=== PATIENT | male | born 2000 | race Caucasian/White ===

== ENCOUNTER 2019-04-14 23:19 | Inpatient (IN) | payer BC ==
[~2019-04-14] VITALS: Ht 182.9 cm; Wt 78.9 kg
[2019-04-14] MEDS ORDERED: PROPOFOL 100 ML IV ONE (23:27)
[2019-04-14] MEDS ORDERED: SODIUM CHLORIDE 0.9% 1,000ML IVBOLUS ONE (23:30)
[2019-04-14] MEDS: PROPOFOL 100 ML IV PRN (23:51)
[2019-04-14 23:56] LABS: MICROSCOPIC NOT IND
--- NOTE | 2019-04-14 23:57 | NUR ---
[facility]IVA REM[facility] FROM A [facility] FOR ETOH. EMS REPORT THE PT WAS CYANOTIC AND VOMITING UPON THEIR ARRIVAL. RA SAT 64%. EMS INTUBATED WITH A 8.0 TUBE, 27 AT THE TEETH. NO MEDS WERE GIVEN PER PARAMEDICS. PUPILS DILATED AND EQUAL BILATERALLY. LUNG SOUNDS REVEAL COARSE RHONCHI THROUGH OUT ALL ALCANTAR. BYSTANDERS DENY ANY DRUG USE, JUST REPORT HEAVY ETOH USE "ALL DAY". NO MEDS, ALLERGIES OR PMHX.
[2019-04-14 23:58] LABS: CULTURE INDICATED? NO
[2019-04-14 23:59] LABS: BASOPHILS # (AUTO) 0.05 x10^3/uL (0-0.1); BASOPHILS % (AUTO) 1 % (0-1); EOSINOPHILS # (AUTO) 0.18 x10^3/uL (0-0.4); EOSINOPHILS % (AUTO) 2 % (1-7); LYMPHOCYTES # (AUTO) 3.33 x10^3/uL (1-3.4); LYMPHOCYTES % (AUTO) 33 % (22-44); MD NO; MEAN CORPUSCULAR HGB CONC 33.7 g/dL (33.2-36.2); MEAN CORPUSCULAR VOLUME 91.9 fL (81-97); MEAN PLATELET VOLUME 7.4 fL (7.4-10.4); MONOCYTES # (AUTO) 0.48 x10^3/uL (0.2-0.8); MONOCYTES % (AUTO) 5 % (2-9); NEUTROPHILS # (AUTO) 6.21 x10^3/uL (1.8-6.8); NEUTROPHILS % (AUTO) 61 % (42-75); PLATELET COUNT 371 x10^3/uL (130-400); RED BLOOD COUNT 5.21 x10^6/uL (4.38-5.82); RED CELL DISTRIBUTION WIDTH 13.2 % (9.4-14.8)
[2019-04-15 00:02] LABS: ALANINE AMINOTRANSFERASE 37 U/L (12-78); ALBUMIN 4.3 g/dL (3.4-5.0); ANION GAP 11 mmol/L (5-15); CHLORIDE 107 mmol/L (98-107); CREATININE 1.01 mg/dL (0.7-1.3)
[2019-04-15 00:03] LABS: SALICYLATE LEVEL < 1.7 mg/dL (2.8-20.0)
[2019-04-15 00:07] LABS: ALKALINE PHOSPHATASE 72 U/L (45-117); BILIRUBIN,TOTAL 0.3 mg/dL (0.2-1.0); TOTAL PROTEIN 7.8 g/dL (6.4-8.2)
[2019-04-15 00:13] LABS: AMPHETAMINE SCREEN, URINE Negative (Negative); BARBITURATE SCREEN, URINE Negative (Negative); BENZODIAZEPINE SCREEN, URINE Negative (Negative); CANNABINOID SCREEN, URINE Negative (Negative); COCAINE SCREEN, URINE Negative (Negative); METHADONE SCREEN, URINE Negative (Negative); OPIATE SCREEN, URINE Negative (Negative)
[2019-04-15] MEDS ORDERED: AMPICILLIN/SULBACTAM 3 GM in SODIUM CHLORIDE 0.9% 100 ML IV ONE (01:00)
[2019-04-15] MEDS ORDERED: PROPOFOL 100 ML IV PRN ×2 (01:08→02:02)
--- NOTE | 2019-04-15 01:21 | NUR ---
PT IN NADCONTINUES ON VENT TV 411 RR 20 FIO2 100% PEEP 5
--- NOTE | 2019-04-15 01:23 | NUR ---
AWAITING ICU BED
[2019-04-15] MEDS ORDERED: SENNA/DOCUSATE TABLET NG PRN ×2 (01:30→02:30)
[2019-04-15] MEDS ORDERED: GLUCAGON 1 MG IM PRN ×2 (01:30→02:30)
[2019-04-15] MEDS ORDERED: DEXTROSE 4 GM TAB.CHEW PO PRN ×2 (01:30→02:30)
[2019-04-15] MEDS ORDERED: DEXTROSE 50%, 50ML SYRINGE IVPush PRN ×2 (01:30→02:30)
[2019-04-15] MEDS ORDERED: LIDOCAINE-MPF 1%, 2ML ENDO PRN ×2 (01:30→02:30)
[2019-04-15] MEDS ORDERED: LACTULOSE 20 GM/30 ML UDC NG PRN ×2 (01:30→02:30)
[2019-04-15] MEDS ORDERED: SENNA 176 MG/5 ML ORAL SOL NG PRN ×2 (01:30→02:30)
[2019-04-15] MEDS ORDERED: BISACODYL 10 MG SUPP PR PRN ×2 (01:30→02:30)
[2019-04-15] MEDS ORDERED: PHARMACY MAY ADJ FOR RENAL FX MC SCH ×2 (01:30→02:30)
[2019-04-15] MEDS ORDERED: NOREPINEPHRINE 4 MG in SODIUM CHLORIDE 0.9% 246 ML IV PRN (02:02)
--- NOTE | 2019-04-15 02:09 | NUR ---
report to [facility] pt to icu with this rn and tech and rt
[2019-04-15] MEDS ORDERED: PIPERACILLIN/TAZO/PMX 3.375GM 50 ML IV SCH (02:30)
[2019-04-15] MEDS ORDERED: [UNRECOGNIZED DRUG - REMARK] MC SCH (03:00)
[2019-04-15 04:00] VITALS: BP 110/67
[2019-04-15] MEDS ORDERED: SODIUM CHLORIDE 0.9% 1,000ML IVBOLUS ONE ×2 (04:00→13:00)
[2019-04-15] MEDS: ALBUTEROL SULFATE 2.5 MG/3 ML INLINE SCH ×6 (04:30→22:30)
[2019-04-15] MEDS: PROPOFOL 100 ML IV PRN ×4 (04:36→23:13)
[2019-04-15] MEDS: INSULIN LISPRO 100 UNITS/ML, PEN SQ-INSULIN SCH ×4 (07:00→21:00)
[2019-04-15] MEDS ORDERED: AMPICILLIN/SULBACTAM 3 GM in SODIUM CHLORIDE 0.9% 100 ML IV SCH (07:00)
[2019-04-15] MEDS ORDERED: SODIUM CHLORIDE FLUSH 10ML SYR IVF SCH (09:00)
[2019-04-15] MEDS: SODIUM CHLORIDE FLUSH 10ML SYR IVF SCH ×2 (09:02→21:32)
[2019-04-15] MEDS: AMPICILLIN/SULBACTAM 3 GM in SODIUM CHLORIDE 0.9% 100 ML IV SCH ×3 (09:02→21:28)
[2019-04-15] MEDS: FENTANYL PF 100 MCG/2ML IVPush PRN ×2 (09:04→10:36)
[2019-04-15] MEDS ORDERED: MIDAZOLAM 1 MG/ML, 2ML IVPush PRN (11:00)
[2019-04-15] MEDS ORDERED: FENTANYL PF 2,500 MCG in SODIUM CHLORIDE 0.9% 200 ML IV PRN (11:00)
[2019-04-15] MEDS ORDERED: PHENYLEPHRINE NASAL 0.25%, 15ML SPRAY NAS PRN (12:30)
[2019-04-15] MEDS ORDERED: VASOPRESSIN 50 UNIT in SODIUM CHLORIDE 0.9% 247.5 ML IV PRN (13:00)
[2019-04-15] MEDS ORDERED: ACETAMINOPHEN 325 MG TABLET ONE (13:07)
[2019-04-15] MEDS: ACETAMINOPHEN 325 MG TABLET PO PRN ×2 (13:15→21:37)
[2019-04-15] MEDS ORDERED: THIAMINE 200 MG in SODIUM CHLORIDE 0.9% 50 ML IV ONE (13:30)
[2019-04-15 16:13] LABS: ALANINE AMINOTRANSFERASE 25 U/L (12-78); ALBUMIN 3.1 g/dL (3.4-5.0); ANION GAP 10 mmol/L (5-15); CALCIUM 7.2 mg/dL (8.5-10.1); CHLORIDE 114 mmol/L (98-107); CREATININE 0.97 mg/dL (0.7-1.3)
[2019-04-15 16:16] LABS: ALKALINE PHOSPHATASE 47 U/L (45-117); BILIRUBIN,TOTAL 0.4 mg/dL (0.2-1.0); TOTAL PROTEIN 5.6 g/dL (6.4-8.2)
[2019-04-15 16:44] LABS: BASOPHILS # (AUTO) 0.02 x10^3/uL (0-0.1); BASOPHILS % (AUTO) 0 % (0-1); EOSINOPHILS % (AUTO) 0 % (1-7); LYMPHOCYTES % (AUTO) 5 % (22-44); MD SCAN; MEAN CORPUSCULAR HEMOGLOBIN 31.1 pg (27.5-34.5); MEAN CORPUSCULAR HGB CONC 33.7 g/dL (33.2-36.2); MEAN CORPUSCULAR VOLUME 92.2 fL (81-97); MEAN PLATELET VOLUME 7.5 fL (7.4-10.4); MONOCYTES # (AUTO) 0.81 x10^3/uL (0.2-0.8); MONOCYTES % (AUTO) 5 % (2-9); NEUTROPHILS # (AUTO) 15.55 x10^3/uL (1.8-6.8); NEUTROPHILS % (AUTO) 90 % (42-75); PLATELET COUNT 266 x10^3/uL (130-400); RED BLOOD COUNT 4.03 x10^6/uL (4.38-5.82); RED CELL DISTRIBUTION WIDTH 13.1 % (9.4-14.8)
[2019-04-15] MEDS ORDERED: KETOROLAC 30 MG/1 ML IVPush SCH (23:00)
[2019-04-16] MEDS: ALBUTEROL SULFATE 2.5 MG/3 ML INLINE SCH ×2 (02:35→06:30)
[2019-04-16] MEDS: PROPOFOL 100 ML IV PRN (03:52)
[2019-04-16] MEDS: AMPICILLIN/SULBACTAM 3 GM in SODIUM CHLORIDE 0.9% 100 ML IV SCH ×4 (03:55→23:03)
[2019-04-16 04:00] VITALS: BP 115/86
[2019-04-16 05:32] LABS: BASOPHILS # (AUTO) 0.01 x10^3/uL (0-0.1); BASOPHILS % (AUTO) 0 % (0-1); EOSINOPHILS # (AUTO) 0.06 x10^3/uL (0-0.4); EOSINOPHILS % (AUTO) 1 % (1-7); LYMPHOCYTES # (AUTO) 0.63 x10^3/uL (1-3.4); LYMPHOCYTES % (AUTO) 6 % (22-44); MD NO; MEAN CORPUSCULAR HEMOGLOBIN 31.3 pg (27.5-34.5); MEAN CORPUSCULAR HGB CONC 34.1 g/dL (33.2-36.2); MEAN CORPUSCULAR VOLUME 91.8 fL (81-97); MEAN PLATELET VOLUME 7.2 fL (7.4-10.4); MONOCYTES # (AUTO) 0.46 x10^3/uL (0.2-0.8); MONOCYTES % (AUTO) 4 % (2-9); NEUTROPHILS # (AUTO) 9.85 x10^3/uL (1.8-6.8); NEUTROPHILS % (AUTO) 90 % (42-75); PLATELET COUNT 178 x10^3/uL (130-400); RED BLOOD COUNT 3.63 x10^6/uL (4.38-5.82); RED CELL DISTRIBUTION WIDTH 13.3 % (9.4-14.8)
[2019-04-16 05:37] LABS: CHLORIDE 109 mmol/L (98-107)
[2019-04-16 05:42] LABS: ANION GAP 6 mmol/L (5-15); CALCIUM 7.9 mg/dL (8.5-10.1); CREATININE 0.93 mg/dL (0.7-1.3); TRIGLYCERIDES 399 mg/dL (50-200)
[2019-04-16] MEDS ORDERED: POTASSIUM CHLORIDE 10% 20 MEQ/15 ML UDC PO ONE (06:30)
[2019-04-16] MEDS ORDERED: MAGNESIUM SULFATE PMX 2GM/50ML 50 ML IV ONE (06:30)
[2019-04-16] MEDS: INSULIN LISPRO 100 UNITS/ML, PEN SQ-INSULIN SCH (07:00)
[2019-04-16] MEDS ORDERED: KETOROLAC 30 MG/1 ML IVPush ONE (08:00)
[2019-04-16] MEDS ORDERED: SODIUM CHLORIDE 0.9% 1,000ML IVBOLUS ONE (08:00)
[2019-04-16] MEDS: SODIUM CHLORIDE FLUSH 10ML SYR IVF SCH ×2 (09:57→21:00)
[2019-04-16] MEDS: MULTIVITAMIN 1 TABLET PO SCH (14:06)
[2019-04-16] MEDS: THIAMINE 100MG TABLET PO SCH (14:06)
[2019-04-16] MEDS: ACETAMINOPHEN 325 MG TABLET PO PRN ×2 (14:06→21:05)
[2019-04-17] MEDS: ACETAMINOPHEN 325 MG TABLET PO PRN ×2 (03:13→15:25)
[2019-04-17] MEDS: AMPICILLIN/SULBACTAM 3 GM in SODIUM CHLORIDE 0.9% 100 ML IV SCH ×4 (04:34→23:16)
[2019-04-17 04:38] LABS: BASOPHILS # (AUTO) 0.02 x10^3/uL (0-0.1); BASOPHILS % (AUTO) 0 % (0-1); EOSINOPHILS # (AUTO) 0.47 x10^3/uL (0-0.4); EOSINOPHILS % (AUTO) 4 % (1-7); LYMPHOCYTES # (AUTO) 0.61 x10^3/uL (1-3.4); LYMPHOCYTES % (AUTO) 5 % (22-44); MD NO; MEAN CORPUSCULAR HGB CONC 33.9 g/dL (33.2-36.2); MEAN CORPUSCULAR VOLUME 91.5 fL (81-97); MEAN PLATELET VOLUME 7.4 fL (7.4-10.4); MONOCYTES # (AUTO) 0.43 x10^3/uL (0.2-0.8); MONOCYTES % (AUTO) 4 % (2-9); NEUTROPHILS # (AUTO) 9.94 x10^3/uL (1.8-6.8); NEUTROPHILS % (AUTO) 87 % (42-75); PLATELET COUNT 192 x10^3/uL (130-400); RED BLOOD COUNT 4.04 x10^6/uL (4.38-5.82); RED CELL DISTRIBUTION WIDTH 13.3 % (9.4-14.8)
[2019-04-17 04:47] VITALS: BP 112/44
[2019-04-17 04:51] LABS: ANION GAP 5 mmol/L (5-15); CALCIUM 8.2 mg/dL (8.5-10.1); CHLORIDE 111 mmol/L (98-107)
[2019-04-17 04:53] LABS: CREATININE 0.87 mg/dL (0.7-1.3)
[2019-04-17] MEDS ORDERED: IBUPROFEN 600 MG TABLET ONE (07:47)
[2019-04-17] MEDS: SODIUM CHLORIDE FLUSH 10ML SYR IVF SCH ×2 (07:51→23:16)
[2019-04-17] MEDS: THIAMINE 100MG TABLET PO SCH (07:51)
[2019-04-17] MEDS: MULTIVITAMIN 1 TABLET PO SCH (07:51)
[2019-04-17] MEDS: IBUPROFEN 600 MG TABLET PO PRN (07:54)
[2019-04-17] MEDS ORDERED: IBUPROFEN 200 MG TABLET PO PRN (08:00)
[2019-04-17 10:20] VITALS: BP 132/80
[2019-04-17 13:54] VITALS: BP 143/83
[2019-04-17 19:08] VITALS: BP 148/88
[2019-04-17] MEDS: BENZONATATE 100 MG CAPSULE PO PRN (19:50)
[2019-04-17] MEDS ORDERED: BENZONATATE 100 MG CAPSULE PO SCH (21:00)
[2019-04-17] MEDS: DIPHENHYDRAMINE 50 MG CAPSULE PO PRN (23:11)
[2019-04-18 01:40] VITALS: BP 123/71
[2019-04-18] MEDS: BENZONATATE 100 MG CAPSULE PO PRN ×2 (04:14→21:33)
[2019-04-18] MEDS: AMPICILLIN/SULBACTAM 3 GM in SODIUM CHLORIDE 0.9% 100 ML IV SCH ×2 (04:55→11:14)
[2019-04-18 05:31] LABS: BASOPHILS # (AUTO) 0.02 x10^3/uL (0-0.1); BASOPHILS % (AUTO) 0 % (0-1); EOSINOPHILS % (AUTO) 8 % (1-7); LYMPHOCYTES # (AUTO) 0.94 x10^3/uL (1-3.4); LYMPHOCYTES % (AUTO) 12 % (22-44); MD NO; MEAN CORPUSCULAR HEMOGLOBIN 30.5 pg (27.5-34.5); MEAN CORPUSCULAR HGB CONC 33.2 g/dL (33.2-36.2); MEAN CORPUSCULAR VOLUME 91.9 fL (81-97); MEAN PLATELET VOLUME 7.6 fL (7.4-10.4); MONOCYTES # (AUTO) 0.51 x10^3/uL (0.2-0.8); MONOCYTES % (AUTO) 6 % (2-9); NEUTROPHILS # (AUTO) 5.92 x10^3/uL (1.8-6.8); NEUTROPHILS % (AUTO) 74 % (42-75); PLATELET COUNT 263 x10^3/uL (130-400); RED BLOOD COUNT 4.53 x10^6/uL (4.38-5.82); RED CELL DISTRIBUTION WIDTH 13.1 % (9.4-14.8)
[2019-04-18 05:41] LABS: ANION GAP 7 mmol/L (5-15); CALCIUM 8.9 mg/dL (8.5-10.1); CHLORIDE 109 mmol/L (98-107)
[2019-04-18 05:42] LABS: TRIGLYCERIDES 272 mg/dL (50-200)
[2019-04-18] MEDS ORDERED: POTASSIUM CHLORIDE 20 MEQ TAB.ER.PRT PO ONE (06:30)
[2019-04-18] MEDS ORDERED: FUROSEMIDE 20 MG/2 ML IV ONE (06:30)
[2019-04-18 07:45] VITALS: BP 128/79
[2019-04-18] MEDS: IBUPROFEN 600 MG TABLET PO PRN (07:48)
[2019-04-18] MEDS: SODIUM CHLORIDE FLUSH 10ML SYR IVF SCH (09:00)
[2019-04-18] MEDS: THIAMINE 100MG TABLET PO SCH (09:17)
[2019-04-18] MEDS: MULTIVITAMIN 1 TABLET PO SCH (09:17)
[2019-04-18 14:30] VITALS: BP 146/82
[2019-04-18] MEDS: AMOXICILLIN/CLAV 875-125MG TABLET PO SCH ×2 (16:39→21:19)
[2019-04-18 19:33] VITALS: BP 145/90
[2019-04-18] MEDS: DIPHENHYDRAMINE 50 MG CAPSULE PO PRN (23:07)
[2019-04-19] MEDS: SODIUM CHLORIDE FLUSH 10ML SYR IVF SCH ×2 (00:30→09:00)
[2019-04-19 01:57] VITALS: BP 107/67
[2019-04-19] MEDS: IBUPROFEN 600 MG TABLET PO PRN (05:26)
[2019-04-19 06:00] LABS: BASOPHILS # (AUTO) 0.03 x10^3/uL (0-0.1); BASOPHILS % (AUTO) 0 % (0-1); EOSINOPHILS # (AUTO) 0.62 x10^3/uL (0-0.4); EOSINOPHILS % (AUTO) 6 % (1-7); LYMPHOCYTES # (AUTO) 1.06 x10^3/uL (1-3.4); LYMPHOCYTES % (AUTO) 11 % (22-44); MD NO; MEAN CORPUSCULAR HEMOGLOBIN 30.5 pg (27.5-34.5); MEAN CORPUSCULAR HGB CONC 33.6 g/dL (33.2-36.2); MEAN CORPUSCULAR VOLUME 90.8 fL (81-97); MEAN PLATELET VOLUME 6.9 fL (7.4-10.4); MONOCYTES # (AUTO) 0.75 x10^3/uL (0.2-0.8); MONOCYTES % (AUTO) 8 % (2-9); NEUTROPHILS # (AUTO) 7.56 x10^3/uL (1.8-6.8); NEUTROPHILS % (AUTO) 75 % (42-75); PLATELET COUNT 298 x10^3/uL (130-400)
[2019-04-19 06:05] LABS: ANION GAP 7 mmol/L (5-15); CHLORIDE 106 mmol/L (98-107)
[2019-04-19 06:09] LABS: CALCIUM 9.2 mg/dL (8.5-10.1); CREATININE 1.08 mg/dL (0.7-1.3); TRIGLYCERIDES 218 mg/dL (50-200)
[2019-04-19 07:42] VITALS: BP 98/65
[2019-04-19] MEDS ORDERED: POTASSIUM CHLORIDE 20 MEQ TAB.ER.PRT PO ONE (08:00)
[2019-04-19] MEDS ORDERED: FUROSEMIDE 20 MG/2 ML IV ONE (08:00)
[2019-04-19] MEDS: THIAMINE 100MG TABLET PO SCH (09:55)
[2019-04-19] MEDS: MULTIVITAMIN 1 TABLET PO SCH (09:55)
[2019-04-19] MEDS: AMOXICILLIN/CLAV 875-125MG TABLET PO SCH (09:55)
[2019-04-19] MEDS ORDERED: BENZ-17 PO (11:46)
[2019-04-19] MEDS ORDERED: AMOX1TAB12 PO (11:46)
== END 2019-04-19 13:10 | disposition home or self-care (01) | DRG 871 ==
LOC: ED 23:54 → EDIP 04-15 00:56 → CCU 04-15 02:01 → 3N 04-17 10:03 → DCLOUNGE 04-19 12:50
PROVIDERS: ADMIT Internal Medicine; ATTEND Hospitalist
PROC: 0T9B70Z Drainage of Bladder with Drainage Device, Via Natural or Artificial Opening (ICD-10-PCS; 2019-04-14)
PROC: 5A1935Z Respiratory Ventilation, Less than 24 Consecutive Hours (ICD-10-PCS; principal; 2019-04-15)
PROC: 02HV33Z Insertion of Infusion Device into Superior Vena Cava, Percutaneous Approach (ICD-10-PCS; 2019-04-15)
PROC: B548ZZA Ultrasonography of Superior Vena Cava, Guidance (ICD-10-PCS; 2019-04-15)
DX: A41.9 Sepsis, unspecified organism (principal); J69.0 Pneumonitis due to inhalation of food and vomit; J96.01 Acute respiratory failure with hypoxia; R65.21 Severe sepsis with septic shock; G92 Toxic encephalopathy; Z99.11 Dependence on respirator [ventilator] status; F10.129 Alcohol abuse with intoxication, unspecified; R04.0 Epistaxis; Y90.8 Blood alcohol level of 240 mg/100 ml or more
CPT/HCPCS: 36415; 36600; 84145; 96374; 96375; 96376; 99291; J7613; 70450; 71045; 80048; 80053; 80307; 81003; 82330; 82803; 82962; 83605; 83735; 84478; 85025; 87040; 87070; 87081; 87205; 93005; 94002; 94003; 94640; G0378; J0295; J1885; J2543; J2704; J3010; J3411; J1940; J3475; J7030; J7050